=== PATIENT | male | born 1990 | race Caucasian/White ===

== ENCOUNTER 2019-11-17 18:49 | Observation (INO) | payer OTHER, SELFPAY ==
[2019-11-17 19:00] VITALS: BP 142/95; PULSE 107; RESP 24; TEMP 38.1; O2SAT 97
[2019-11-17] MEDS: SODIUM CHLORIDE 0.9% IV 1,000 ML 999 ML IV CONT ×2 (19:00→19:30)
--- NOTE | 2019-11-17 19:01 | PC.NURSE ---
Poison control contacted spoke with Marcy, she states she is going to get in contact with rehabilitation liaison because she has limited information on bleach injection. Supportive care until then.
--- NOTE | 2019-11-17 19:03 | ECG_ITS ---
Measurements Intervals [place] Rate: 109 P: 52 CO: 114 QRS: 50 QRSD: 97 T: 55 QT: 337 QTc: 454 Interpretive Statements SINUS TACHYCARDIA WITH SHORT CO INTERVAL POSSIBLE LEFT ATRIAL ENLARGEMENT MINIMAL Q WAVES- HIGH LATERAL LEADS NONSPECIFIC ST & T-WAVE ABNORMALITY- ANTEROLAT/INF LEADS ABNORMAL ECG Electronically Signed On 11-18-2019 9:14:17 CDT by Jed Dang D.O.
--- NOTE | 2019-11-17 19:08 | ED.GENADULT ---
HPI - General Adult General Chief complaint: Overdose Stated complaint: pain all over body History of Present Illness HPI narrative: Afshin is a 29M with a PMH of Hep C and methamphetamine use that presented to clinic shortly after ingesting what he thinks was household bleach. He was cleaning out his syringes when he believes he made a mistake and injected 0.4cc of household bleach or a bleach meth mix. He immediately started having full body stabbing pain, especially in his back. Related Data Home Medications Medication Instructions Recorded Confirmed No Home Medications 11/17/19 11/17/19 Allergies Allergy/AdvReac Type Severity Reaction Status Date / Time No Known Allergies Allergy Verified 11/17/19 19:45 Review of Systems Review of Systems: ROS unobtainable: Yes unobtainable due to medical condition (Was rolling around screaming in pain) Exam Const: Other: Was able to ambulate in but as soon as he got in the room he was writhing around screaming in pain. HENMT: Other: Normocephalic, atraumatic, EOMI Eyes: Conjunctivae: conjunctivae normal Pupils: Equal, round and reactive pupils present Neck: Neck: normal visual inspection Chest: Chest palpation & inspection: normal inspection of the chest Resp: Other: Tachypnea but breath sounds clear Cardio: Rate: tachycardic Rhythm: regular rhythm Heart sounds: no murmurs GI: GI Palp: Yes Soft to palpation and No Tenderness to palpation present (GI) Urinary Catheter: Urinary Catheter: other (Urinary catheter placed ) Skin: General skin exam: normal color Rashes: no rashes Other: Warm to touch Neuro: General: patient oriented x3 and moves all extremities Extrem: General: normal to inspection Psych: Other: Screaming in pain and could do little communication. Stated he was not trying to hurt himself. Course Course Emergency Course: Afshin was seen and evaluated. An IV was placed and he was given 1L NS, 75mcg of fentanyl for pain control. Ordered labs and EKG. Poison control was contacted and stated to watch for [place] and [place], they stated that they would call back with more information. He continued to be agitated so he was given 5mg of haldol. Poison control again contacted us and recommended fluids distal to the injection site and supportive care. ABG was consistent with a primary respiratory alkalosis with secondary metablolic alkalosis. Lactic acid was elevated at 5.1, Anion gap was 17.0, K+ was 3.0 and Mg was 1.7. I again contacted Dr. Fransisco Shah who recommended repeating labs at 2200. Given the worsening LFTs and lactic acid had not returned to normal we will admit for observation, place on NS at 100ml per hour and give morphine 2mg IV for pain. Will repeat labs in the AM. OF NOTE DR. FRANSISCO SHAH OF POISON CONTROL WANTS TO BE CONTACTED WITH UPDATES. HIS CELL IS [phone]. Vital Signs Vital signs: Vital Signs Temperature 38.1 C H 11/17/19 19:00 Pulse Rate 107 H 11/17/19 19:00 Respiratory Rate 24 H 11/17/19 19:00 Blood Pressure 142/95 H 11/17/19 19:00 Pulse Oximetry 97 11/17/19 19:00 Temperature 37.3 C 11/17/19 22:12 Pulse Rate 108 H 11/17/19 23:18 Respiratory Rate 20 11/17/19 21:40 Blood Pressure 103/72 11/17/19 23:18 Pulse Oximetry 93 11/17/19 23:18 Medical Decision Making Vital Signs Vital Signs: Vital Signs Temperature 38.1 C H 11/17/19 19:00 Pulse Rate 107 H 11/17/19 19:00 Respiratory Rate 24 H 11/17/19 19:00 Blood Pressure 142/95 H 11/17/19 19:00 Pulse Oximetry 97 11/17/19 19:00 Temperature 37.3 C 11/17/19 22:12 Pulse Rate 108 H 11/17/19 23:18 Respiratory Rate 20 11/17/19 21:40 Blood Pressure 103/72 11/17/19 23:18 Pulse Oximetry 93 11/17/19 23:18 Lab Data Result diagrams: 11/17/19 19:17 11/17/19 22:14 Labs: Lab Results 11/17/19 11/17/19 11/17/19 Range/Units 19:17 19:17 19:17 WBC 3.0 L (4.8-10.8) K/mm3 RBC 4
[2019-11-17] MEDS: HALOPERIDOL LACTATE 5 MG/ML VIAL IV PUSH (19:15)
[2019-11-17 19:21] LABS: Base Excess ABG -1.9 mmol/L (0-2); HCO3 ABG 16.8 mmol/L (23-29); Oxygen Content ABG 18.8 %vol (16.0-22.0); Oxygen Saturation ABG 99.1 % (95-97); Oxyhemoglobin 95.3 % (94-100); PO2 ABG 115.1 mmHg (80-90); Total Hemoglobin 13.9 g/dL
[2019-11-17 19:22] LABS: Device ROOM AIR; Modified Allen's Test Pass; Site Drawn LEFT RADIAL
[2019-11-17 19:23] LABS: PCO2 ABG 17.4 mmHg (35-45)
[2019-11-17 19:28] LABS: Hematocrit 41.9 % (40.0-54.0); Hemoglobin 14.5 g/dL (14.0-18.0); Mean Corpuscular HGB Conc 34.6 g/dL (32.0-36.0); Mean Corpuscular Hemoglobin 30.9 pg (27.0-31.0); Mean Corpuscular Volume 89.1 fL (78.0-102.0); Mean Platelet Volume 8.1 fl (8.7-11.0); Platelet Count Result 253 K/mm3 (150-420); Red Cell Distribution Width 12.5 % (11.6-14.4)
--- NOTE | 2019-11-17 19:30 | PC.NURSE ---
school child care attendant from [facility] returned call to give more information. Fransisco Claudio from poison center reports that there is little information about what bleach injection does and spoke with [facility].
[2019-11-17 19:37] LABS: Prothrombin Time 10.7 Seconds (9.64-11.0)
[2019-11-17 19:41] LABS: Alanine Aminotransferase 61 U/L (16-63); Albumin Level 3.7 g/dL (3.4-5.0); Alkaline Phosphatase 67 U/L (46-116); Aspartate Amino Transferase 34 U/L (15-37); Bilirubin,Total 0.4 mg/dL (0.00-1.00); Blood Urea Nitrogen 9 mg/dL (7-18); Calcium 8.6 mg/dL (8.5-10.1); Carbon Dioxide 24 mmol/L (21-32); Chloride 104 mmol/L (98-108); Creatine Kinase 74 U/L (39-308); Estimated CRCL calculation 82 ml/min; Estimated Glomerular Filt Rate > 60; Glucose 105 mg/dL (70-99); Lipase 65 U/L (73-393); Magnesium 1.7 mg/dL (1.8-2.4); Osmolality Calculated 292 mOsm/kg (285-295); Salicylate 2.1 mg/dL (2.8-20.0); Sodium 142 mmol/L (136-145); Total Protein 6.9 g/dL (6.4-8.2)
[2019-11-17 19:42] LABS: Acetaminophen 0 ug/mL (10-30); Troponin I < 0.02 ng/mL (0.00-0.056)
[2019-11-17 19:47] LABS: Lactic Acid 5.1 mmol/L (0.4-2.0); Neutrophils Percent Manual 57 % (46-73); Total Cells Counted 100
[2019-11-17 19:48] LABS: Band Neutrophils Percent 2 % (0-6); Basophils Percent Manual 0 % (0-1); Eosinophils Percent Manual 0 % (1-6); Lymphocytes Percent Manual 30 % (18-44); Metamyelocytes Percent 1 %; Monocytes Absolute Manual 0.18 K/mm3 (0.1-0.90); Monocytes Percent Manual 6 % (3-9); Myelocytes Percent 4 %; Neutrophils Absolute Manual 1.77 K/mm3 (1.3-6.7); Platelet Estimate Adequate (Adequate)
[2019-11-17 19:49] VITALS: BP 120/67; PULSE 110; RESP 20; O2SAT 97
[2019-11-17 19:49] LABS: BNP 12.5 pg/mL (0-100)
[2019-11-17 20:00] LABS: Amphetamine Screen Urine Positive (Negative); Barbiturate Screen Urine Negative (Negative); Benzodiazepines Screen Urine Negative (Negative); Cannabinoid Screen Urine Positive (Negative); Cocaine Screen Urine Negative (Negative); Methadone Screen Urine Negative (Negative); Opiate Screen Urine Negative (Negative); Phencyclidine Screen Urine Negative (Negative)
--- NOTE | 2019-11-17 20:09 | PC.NURSE ---
PT RESTING QUIETLY ON STRETCHER.
[2019-11-17 20:30] VITALS: TEMP 37.3
[2019-11-17 21:40] VITALS: BP 98/59; PULSE 112; RESP 20; O2SAT 97
--- NOTE | 2019-11-17 21:55 | ECG_ITS ---
Measurements Intervals [place] Rate: 116 P: 56 OK: 123 QRS: 48 QRSD: 90 T: 47 QT: 315 QTc: 438 Interpretive Statements SINUS TACHYCARDIA POSSIBLE LEFT ATRIAL ENLARGEMENT NONSPECIFIC ST & T-WAVE ABNORMALITY- ANTEROLAT/INF LEADS ABNORMAL ECG Electronically Signed On 11-18-2019 9:15:41 CDT by Jed Dang D.O.
[2019-11-17 22:12] VITALS: TEMP 37.3
[2019-11-17 22:19] LABS: Base Excess ABG -2.3 mmol/L (0-2); HCO3 ABG 20.8 mmol/L (23-29); Modified Allen's Test Pass; Oxygen Content ABG 17.4 %vol (16.0-22.0); Oxygen Saturation ABG 95.1 % (95-97); Oxyhemoglobin 93.4 % (94-100); PCO2 ABG 31.2 mmHg (35-45); PO2 ABG 68.3 mmHg (80-90); Site Drawn LEFT RADIAL; Total Hemoglobin 13.2 g/dL; pH ABG 7.44 (7.35-7.45)
[2019-11-17 22:20] LABS: Device ROOM AIR
[2019-11-17 22:37] LABS: Alanine Aminotransferase 175 U/L (16-63); Albumin Level 2.9 g/dL (3.4-5.0); Alkaline Phosphatase 68 U/L (46-116); Anion Gap 14.1 mmol/L (7-16); Aspartate Amino Transferase 317 U/L (15-37); Bilirubin,Total 0.8 mg/dL (0.00-1.00); Blood Urea Nitrogen 10 mg/dL (7-18); Calcium 7.6 mg/dL (8.5-10.1); Carbon Dioxide 24 mmol/L (21-32); Chloride 106 mmol/L (98-108); Estimated CRCL calculation 82 ml/min; Estimated Glomerular Filt Rate > 60; Glucose 102 mg/dL (70-99); Lactic Acid 2.5 mmol/L (0.4-2.0); Osmolality Calculated 291 mOsm/kg (285-295); Potassium 3.1 mmol/L (3.5-5.1); Sodium 141 mmol/L (136-145); Total Protein 5.5 g/dL (6.4-8.2); Troponin I 0.03 ng/mL (0.00-0.056)
--- NOTE | 2019-11-17 23:16 | PC.NURSE ---
Classification Control Clerk, quinton marley [phone] called back for pt update. spoke with dr irene.
[2019-11-17 23:18] VITALS: BP 103/72; PULSE 108; O2SAT 93
--- NOTE | 2019-11-17 23:25 | PC.NURSE ---
report to johnie Ohara
[2019-11-18] MEDS: SODIUM CHLORIDE 0.9% IV 1,000 ML 100 ML IV CONT (00:38)
[2019-11-18 00:55] VITALS: BP 105/72; PULSE 101; RESP 20; O2SAT 100
[2019-11-18 01:15] VITALS: BP 97/71; PULSE 96; RESP 18; TEMP 37.4; O2SAT 98
--- NOTE | 2019-11-18 01:15 | ADMGEN ---
This patient, Afshin Chand, was admitted to 2nd Floor Room 203-2. Patient oriented to hospital policies and general routines including ID bracelet, bed and alarms, visiting hours, pain management, procedures, bathroom and other care routines, personal items, smoking policy, room service/diet, and visiting hours. Valuables list has been completed. Information on how to activate the Rapid Response Team has been discussed. Patient encouraged to report perceived risks to care and to ask questions if they do not understand what they are told or what they should do.
[2019-11-18] MEDS: SODIUM CHLORIDE 0.9% IV 1,000 ML 999 ML IV CONT (01:24)
[2019-11-18 01:26] VITALS: BMI 24.3
--- NOTE | 2019-11-18 02:27 | PC.NURSE ---
pt sleeping, respirations even and regular, no evidence of pain, iv fluids infusing per order, call light and belongings within reach
[2019-11-18 02:57] VITALS: RESP 18
--- NOTE | 2019-11-18 03:20 | PC.NURSE ---
pt sleeping, respirations even and regular, no evidence of pain, iv fluids infusing per order, call light and belongings within reach
[2019-11-18 04:00] VITALS: BP 98/62; PULSE 101; RESP 18; TEMP 37.2; O2SAT 97
--- NOTE | 2019-11-18 04:05 | PC.NURSE ---
pt vital signs obtained, pt resting with eyes closed, no complaints at this time, iv fluids infusing per order.
--- NOTE | 2019-11-18 05:14 | PC.NURSE ---
pt sleeping, respirations even and regular, no evidence of pain, iv fluids infusing per order, call light and belongings within reach
[2019-11-18 05:40] LABS: Hematocrit 36.2 % (40.0-54.0); Hemoglobin 12.4 g/dL (14.0-18.0); Mean Corpuscular HGB Conc 34.3 g/dL (32.0-36.0); Mean Corpuscular Hemoglobin 30.9 pg (27.0-31.0); Mean Corpuscular Volume 90.3 fL (78.0-102.0); Mean Platelet Volume 8.6 fl (8.7-11.0); Platelet Count Result 164 K/mm3 (150-420); Red Blood Count 4.01 M/mm3 (4.70-6.10); Red Cell Distribution Width 12.7 % (11.6-14.4); White Blood Count 12.9 K/mm3 (4.8-10.8)
[2019-11-18 06:02] LABS: Lactic Acid Reflex 2.4 mmol/L (0.4-2.0)
[2019-11-18 06:07] LABS: Alanine Aminotransferase 170 U/L (16-63); Albumin Level 2.7 g/dL (3.4-5.0); Alkaline Phosphatase 57 U/L (46-116); Anion Gap 13.4 mmol/L (7-16); Aspartate Amino Transferase 180 U/L (15-37); Bilirubin,Total 0.5 mg/dL (0.00-1.00); Blood Urea Nitrogen 10 mg/dL (7-18); Calcium 7.3 mg/dL (8.5-10.1); Carbon Dioxide 24 mmol/L (21-32); Chloride 107 mmol/L (98-108); Estimated CRCL calculation 84 ml/min; Estimated Glomerular Filt Rate > 60; Glucose 94 mg/dL (70-99); Osmolality Calculated 291 mOsm/kg (285-295); Potassium 3.4 mmol/L (3.5-5.1); Sodium 141 mmol/L (136-145); Total Protein 5.5 g/dL (6.4-8.2)
[2019-11-18 06:10] LABS: Band Neutrophils Percent 5 % (0-6); Neutrophils Absolute Manual 10.57 K/mm3 (1.3-6.7); Neutrophils Percent Manual 77 % (46-73); Total Cells Counted 100
[2019-11-18 06:11] LABS: Basophils Absolute Manual 0.12 K/mm3 (0-0.1); Basophils Percent Manual 1 % (0-1); Lymphocytes Absolute Manual 0.51 K/mm3 (1.1-4.5); Lymphocytes Percent Manual 4 % (18-44); Metamyelocytes Percent 1 %; Monocytes Absolute Manual 1.54 K/mm3 (0.1-0.90); Monocytes Percent Manual 12 % (3-9); Platelet Estimate Adequate (Adequate)
[2019-11-18 06:12] LABS: Troponin I 0.09 ng/mL (0.00-0.056)
--- NOTE | 2019-11-18 06:19 | ECG_ITS ---
Measurements Intervals [place] Rate: 89 P: 55 UT: 133 QRS: 34 QRSD: 94 T: 38 QT: 357 QTc: 436 Interpretive Statements SINUS RHYTHM MINIMAL Q WAVES- LATERAL LEADS BASELINE WANDER- V4-V6 BORDERLINE ECG Electronically Signed On 11-20-2019 7:24:16 CDT by Jed Dang D.O.
--- NOTE | 2019-11-18 06:20 | PC.NURSE ---
Dr Flores at bedside to evaluate pt, pt denies chest pain or sob, EKG performed, no new orders at this time
--- NOTE | 2019-11-18 06:48 | PM.EVENT ---
Event Note Event Note Event Note: Was called for critical troponin of 0.09. Ordered repeat EKG which was NSR with a rate of 89, no ST elevation/depressioin and normal axis. He had no chest pain. Attempted to call cardiology at [facility] through On-Call Transfer line but no one answered. Will continut to try and pass on message to my replacment.
[2019-11-18 08:00] VITALS: BP 100/65; PULSE 90; RESP 14; TEMP 36.7; O2SAT 99
[2019-11-18 08:38] LABS: Reflex Lactic Acid Yes or No Add Lactic
[2019-11-18 08:44] LABS: Creatine Kinase 57 U/L (39-308)
[2019-11-18 09:18] LABS: Phosphorus 3.3 mg/dL (2.6-4.7)
[2019-11-18 09:23] LABS: Lactic Acid 3.7 mmol/L (0.4-2.0)
[2019-11-18] MEDS: MAGNESIUM SULF 4 GM/WATER100ML 4 GM/100 ML BAG IVPB (10:00)
[2019-11-18] MEDS: ENOXAPARIN 40 MG/0.4 ML SYRINGE SUB-Q (10:00)
[2019-11-18] MEDS: POTASSIUM CHLORIDE 20 MEQ TABLET 40 MEQ PO (10:00)
--- NOTE | 2019-11-18 10:27 | PM.IMHP ---
H&P: HPI History of Present Illness Chief complaint: pain all over body <Camilla Poole NP - Last Filed: 11/18/19 15:55> Narrative: Afshin Chand is a 29 year old male admitted yesterday evening due to possible drug overdose, with patient complaining of pain all over his body. Afshin is a 29M with a PMH of Hep C and methamphetamine use that presented to clinic shortly after ingesting what he thinks was household bleach. He was cleaning out his syringes when he believes he made a mistake and injected 0.4cc of household bleach or a bleach meth mix. He immediately started having full body stabbing pain, especially in his back. At his ED visit admission, he was rolling around screaming in pain, but also able to ambulate. He stated he was not trying to hurt himself. Poison control was contacted and stated to watch for [place] and [place], they stated that they would call back with more information. He continued to be agitated so he was given 5mg of haldol. Poison control again contacted us and recommended fluids distal to the injection site and supportive care. At admission, ABG was consistent with a primary respiratory alkalosis with secondary metablolic alkalosis. Lactic acid was elevated at 5.1, Anion gap was 17.0, K+ was 3.0 and Mg was 1.7. Given the worsening LFTs and lactic acid had not returned to normal we will admit for observation, place on NS at 100ml per hour and give morphine 2mg IV for pain. Will repeat labs in the AM. OF NOTE DR. MARIA DEL ROSARIO SHAH OF POISON CONTROL WANTS TO BE CONTACTED WITH UPDATES. HIS CELL IS [phone]. <Camilla Poole, CLASSROOM COORDINATOR - Last Filed: 11/18/19 15:55> Review of Systems Review of Systems: All systems reviewed & are unremarkable except as noted in HPI and below <Camilla Poole NP - Last Filed: 11/18/19 15:55> ROS unobtainable: Yes unobtainable due to medical condition (Was rolling around screaming in pain) <Camilla Poole NP - Last Filed: 11/18/19 15:55> Constitutional: Constitutional: Reports as per HPI, Denies excessive sweating, Reports fatigue, Denies headache(s), Denies increased appetite, Denies snoring and Denies weight gain <Camilla Poole CLASSROOM COORDINATOR - Last Filed: 11/18/19 15:55> Eyes: Eyes: Reports as per HPI, Denies blurry vision, Denies exophthalmos, Denies diplopia, Denies floaters, Denies loss of peripheral vision and Denies photophobia <Camilla Poole, CLASSROOM COORDINATOR - Last Filed: 11/18/19 15:55> ENT: Reports as per HPI, Reports Normal hearing present, Denies facial pain, Denies headache(s), Denies epistaxis, Denies nasal congestion, Denies nasal discharge, Denies odynophagia and Denies tinnitus <Camilla Poole, CLASSROOM COORDINATOR - Last Filed: 11/18/19 15:55> Cardiovascular: Cardiovascular: Reports as per HPI, Denies chest pain, Denies diaphoresis, Denies pedal edema, Denies leg edema, Denies lightheadedness and Denies palpitations <Camilla Poole, CLASSROOM COORDINATOR - Last Filed: 11/18/19 15:55> Respiratory: Respiratory: Reports as per HPI, Denies chest congestion, Denies cough, Denies hemoptysis, Denies dyspnea, Denies dyspnea on exertion, Denies snoring and Denies wheezing <Camilla Poole, CLASSROOM COORDINATOR - Last Filed: 11/18/19 15:55> Gastrointestinal: Gastrointestinal: Reports as per HPI, Denies abdominal pain, Denies melena, Denies bloating, Denies hematochezia and Denies odynophagia <Camilla Poole, CLASSROOM COORDINATOR - Last Filed: 11/18/19 15:55> Genitourinary: Genitourinary: Reports as per HPI and Denies dysuria <Camilla Poole, CLASSROOM COORDINATOR - Last Filed: 11/18/19 15:55> Musculoskeletal: Musculoskeletal: Reports as per HPI <Camilla Poole, CLASSROOM COORDINATOR - Last Filed: 11/18/19 15:55> Integumentary/Breasts: Skin/Breast: Reports as per HPI, Denies pruritus, Denies erythema, Denies rash and Denies skin pain <Camilla Poole, CLASSROOM COORDINATOR - Last Filed: 11/18/19 15:55> Neurologic: Reports as per HPI, Denies Abnormal speech present and Denies headache(s) <Camilla Poole, CLASSROOM COORDINATOR - Last Filed: 11/18/19 15:55> Psychiatric: Psychiatric: Reports as per HPI, Denies anxiety, Denies behavioral changes, Repor
[2019-11-18 11:42] VITALS: BP 110/69; PULSE 99; RESP 16; TEMP 36.9; O2SAT 100
[2019-11-18 12:33] LABS: Add Urine Microscopic? YES; Appearance Urine Sl Cloudy (Clear); Bilirubin Urine Negative (Negative); Blood Urine 2+ (Negative); Color Urine Yellow (Yellow); Glucose Urine UA Negative (Negative); Ketones Urine Negative (Negative); Leukocyte Esterase Ur Negative (Negative); Nitrate Urine Negative (Negative); Protein Urine Negative (Negative); Specific Grav Ur 1.025 (1.010-1.020); Urobilinogen Urine 0.2 mg/dL (0.2-1.0)
[2019-11-18 12:38] LABS: Bacteria Urine Trace /hpf; Mucus Urine Moderate /lpf; WBC Urine 0-3 /hpf (0-3)
[2019-11-18 12:57] LABS: Alanine Aminotransferase 157 U/L (16-63); Albumin Level 2.8 g/dL (3.4-5.0); Alkaline Phosphatase 62 U/L (46-116); Anion Gap 11.9 mmol/L (7-16); Aspartate Amino Transferase 120 U/L (15-37); Bilirubin,Total 0.5 mg/dL (0.00-1.00); Blood Urea Nitrogen 11 mg/dL (7-18); Calcium 7.9 mg/dL (8.5-10.1); Carbon Dioxide 25 mmol/L (21-32); Chloride 107 mmol/L (98-108); Estimated CRCL calculation 99 ml/min; Estimated Glomerular Filt Rate > 60; Glucose 93 mg/dL (70-99); Osmolality Calculated 289 mOsm/kg (285-295); Potassium 3.9 mmol/L (3.5-5.1); Sodium 140 mmol/L (136-145); Total Protein 5.7 g/dL (6.4-8.2)
[2019-11-18 13:08] LABS: HIV 1 P24 AG Negative (Negative); HIV 1/2 AB Negative (Negative)
[2019-11-18 13:49] LABS: Magnesium 2.7 mg/dL (1.8-2.4)
[2019-11-18 14:07] LABS: Creatine Kinase 15 U/L (39-308)
[2019-11-18 14:08] LABS: Creatine Kinase MB < 0.50 ng/mL (0.00-5.00); Troponin I < 0.02 ng/mL (0.00-0.056)
[2019-11-18 14:25] LABS: Lactic Acid 1.3 mmol/L (0.4-2.0)
[2019-11-18 14:26] LABS: Hematocrit 36.8 % (40.0-54.0); Hemoglobin 12.4 g/dL (14.0-18.0); Mean Corpuscular HGB Conc 33.7 g/dL (32.0-36.0); Mean Corpuscular Hemoglobin 30.7 pg (27.0-31.0); Mean Corpuscular Volume 91.1 fL (78.0-102.0); Mean Platelet Volume 9.3 fl (8.7-11.0); Platelet Count Result 175 K/mm3 (150-420); Red Blood Count 4.04 M/mm3 (4.70-6.10); Red Cell Distribution Width 13.1 % (11.6-14.4); White Blood Count 16.7 K/mm3 (4.8-10.8)
--- NOTE | 2019-11-18 15:22 | PC.NURSE ---
Spoke with Posion Control, they are signing off on his case for now. Stated all labs are normal for what the patient has been through. Patient is safe to be discharged from poison controls stance. All info has been relayed to Camilla Poole ANP
--- NOTE | 2019-11-18 15:55 | PM.DS ---
DS: Diagnosis Admitting Diagnosis Admitting Diagnosis: Poisoning by other primarily systemic and hematological agents, accidental (unintentional), initial encounter Discharge Diagnosis (1) Accidental poisoning by agents primarily affecting blood constituents: Code(s): T45.8X1A - Poisoning by other primarily systemic and hematological agents, accidental (unintentional), initial encounter Status: Acute Assessment and Plan: injected himself accidentally with bleach stated that he was not trying to hurt himself so not likely suicidal stated today that this whole episode has made him seriously think about quitting meth offered support to quit his drug habit encouraged and instructed patient how to contact Dr. Flores to establish him as a new primary care physician patient is much improved today, alert and oriented times 3-4, physically return to baseline, labs increased and then decreased with nmost of them returning to baseline and normal limits, patient discharged today with labs planned for Wednesday which is in 48 hours with a follow-up to a primary care physician Dr. Flores (2) Drug abuse, amphetamine type: Code(s): F15.10 - Other stimulant abuse, uncomplicated Status: Acute Assessment and Plan: admittedly a Marijuana and Meth Drug user. urine drug screen positive for both amphetamines and cannabis no signs of withdrawal at this time he is alert and oriented, no tremors noted, no agitation, slightly tachycardic with a heart rate of 101 1st troponin was within normal limits, next troponin was 0.03, next troponin was 0.09, next troponin was within normal limits denies chest pain, denies chest pressure, denies heart palpitations, denies numbness or tingling of any extremity, denies headaches encouraged patient to stop drug use and offered treatment and support establishing patient with a primary care provider Dr. Flores at this time, as he has had no primary care provider (3) Leukocytosis: Code(s): D72.829 - Elevated white blood cell count, unspecified Status: Acute Assessment and Plan: leukocytosis is likely a reactive process given IV fluids and boluses collected urine cultures and blood cultures no fever or cough or wounds noted during hospitalization WBC was 3.0 at admission, then increased to 12.9, then increase to 16 we have consulted with poison control, and they said this is to be expected his immune system is responding to the poison as expected. Ordered a repeat CBC in 48 hours, to be completed Wednesday by the patient, and I have instructed him to do so in the discharge orders. He is also instructed to follow-up with a primary care provider as soon as possible encouraged him to continue oral hydration after discharge (4) Elevated liver enzymes: Code(s): R74.8 - Abnormal levels of other serum enzymes Status: Acute Assessment and Plan: his liver enzymes increased as a response to the poison initially his liver enzymes were within normal limits admission given IV fluids and boluses alkaline phosphatase has remained normal the whole time the ALT and AST increased and now have decreased I have ordered a repeat CMP to be completed on Wednesday, in 48 hours, with the results sent to his new primary care provider, those orders are in his discharge instructions he is expected to continue his oral hydration after discharge as instructed also instructed him to avoid all alcohol and drug use DS: Summary Time Spent with Patient Time attestation: Total time spent providing and/or coordinating discharge services: >45 min Exam Const: General: comfortable, no acute distress and confusion Orientation/consciousness: patient oriented x3 and confusion Other: able to ambulate , feeding himself, getting his own drink, able to carry on a conversation HENMT: General nose exam: Normal nares present Other: Normocephalic, atraumatic, EOMI Eyes:
--- NOTE | 2019-11-19 07:43 | PM.EVENT ---
Event Note Event Note Event Note: Case reviwed with Camilla Lora. Pt describes to me injecting the solution, having no pain in his left antecubital area or arm vein immediately afterwards, but soon afterwards experiencing severe low back pain followed by severe pain going up his spine into his extremities and head. He go relief only after receiving IV narcotic in the E.D. He has no pain today and denies any problems vision, cognition, motor, sensory or position . He has a very low grade headache. Neuro: CN 3 - 12 intact. U.E. and L.E. sensory and motor intact. finger - nose, heel-hurley doug. I reviewed and agree with the note and plan outlined by Camilla Lora.
[2019-11-21 03:19] LABS: Hepatitis C Additional Testing Has been added; Hepatitis C Virus Antibody Reactive (Nonreactive)
[2019-11-22 02:44] LABS: Hepatitis B Surface Antigen Nonreactive (Nonreactive)
[2019-11-30 15:58] LABS: Hepatitis C Viral RNA PCR 1670000 IU/mL
== END 2019-11-18 16:45 | disposition home or self-care (01) ==
LOC: CHSED 23:45 → CHS2ND 11-18 01:02
PROVIDERS: Nurse Practitioner; Admitting Provider Family Medicine; Emergency Provider Family Medicine; Visit Provider Family Medicine
DX: T54.91XA Toxic effect of unspecified corrosive substance, accidental (unintentional), initial encounter (principal); B19.20 Unspecified viral hepatitis C without hepatic coma; F15.10 Other stimulant abuse, uncomplicated; F12.90 Cannabis use, unspecified, uncomplicated; R74.8 Abnormal levels of other serum enzymes; R52 Pain, unspecified
CPT/HCPCS: 36415; 36600; 80053; 80307; 81001; 82550; 82553; 82805; 83605; 83690; 83735; 83880; 84100; 84484; 85025; 85027; 85610; 86703; 87040; 87086; 93005; 96361; 96365; 96372; 96374; 96375; 99283; 99285; A9270; G0378; G0379; J1630; J1650; J3010; J3475; J7030